=== PATIENT | female | born 1945 | race Two or more races ===

== ENCOUNTER 2016-04-17 21:50 | Emergency (ER) | payer MEDICARE, MEDICAID ==
[2016-04-17] MEDS ORDERED: KETOROLAC 60 MG/2 ML VIAL IM STA (22:12)
[2016-04-17] MEDS ORDERED: KETOROLAC 60 MG/2 ML VIAL ONE (22:25)
== END 2016-04-17 23:10 | disposition home or self-care (01) ==
DX: S43.401A Unspecified sprain of right shoulder joint, initial encounter (principal); H91.90 Unspecified hearing loss, unspecified ear; E11.9 Type 2 diabetes mellitus without complications; F17.200 Nicotine dependence, unspecified, uncomplicated; X50.1XXA Overexertion from prolonged static or awkward postures, initial encounter; Y92.009 Unspecified place in unspecified non-institutional (private) residence as the place of occurrence of the external cause